=== PATIENT | male | born 1995 | race Caucasian/White ===

== ENCOUNTER 2019-05-18 06:43 | Emergency (ER) | payer OTHER ==
[~2019-05-18] VITALS: Ht 177.8 cm; Wt 123.2 kg
[2019-05-18] MEDS ORDERED: LISD40CA3 (07:07)
[2019-05-18] MEDS ORDERED: FLUORESCEIN (FLUOR-I-STRIPS) 1 MG STRP ONE (07:12)
[2019-05-18] MEDS ORDERED: TETRACAINE 0.5% OPHTH SOLN 4 ML BTL (SINGLE DOSE ONLY) ONE (07:12)
[2019-05-18] MEDS ORDERED: FLUORESCEIN (FLUOR-I-STRIPS) 1 MG STRP OU ONE (07:15)
[2019-05-18] MEDS ORDERED: TETRACAINE 0.5% OPHTH SOLN 4 ML BTL (SINGLE DOSE ONLY) OP ONE (07:15)
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
--- NOTE | 2019-05-18 07:35 | NUR ---
Visual acuity: OS- 20/50 (-1), OD- 20/50 (-1), OU- 20/40
[2019-05-18] MEDS ORDERED: HYDROcodone/APAP 5 MG/325 MG (LORTAB) TAB ONE (07:42)
[2019-05-18] MEDS ORDERED: TOBR5DRO OP (07:43)
[2019-05-18] MEDS ORDERED: HYDR-4226 PO (07:43)
[2019-05-18] MEDS ORDERED: HYDROcodone/APAP 5 MG/325 MG (LORTAB) TAB PO ONE (07:45)
[2019-05-18 07:54] VITALS: BP 132/99
== END 2019-05-18 07:54 | disposition home or self-care (01) ==
LOC: ER FS 06:48
DX: T26.11XA Burn of cornea and conjunctival sac, right eye, initial encounter (principal); T26.12XA Burn of cornea and conjunctival sac, left eye, initial encounter; T31.0 Burns involving less than 10% of body surface; Z88.1 Allergy status to other antibiotic agents; Z88.6 Allergy status to analgesic agent; X58.XXXA Exposure to other specified factors, initial encounter
CPT/HCPCS: 99283